=== PATIENT | male | born 1985 | race African-American/Black ===

== ENCOUNTER 2017-01-28 05:44 | Emergency (ER) | payer SELFPAY ==
[~2017-01-28] VITALS: Ht 177.8 cm; Wt 63.0 kg
[2017-01-28 06:00] VITALS: BP 156/90
== END 2017-01-28 06:27 | disposition left against medical advice (07) ==
LOC: ER 05:55
DX: R42 Dizziness and giddiness (principal); R00.0 Tachycardia, unspecified; F14.10 Cocaine abuse, uncomplicated; F41.9 Anxiety disorder, unspecified; I10 Essential (primary) hypertension; F17.210 Nicotine dependence, cigarettes, uncomplicated; Z53.21 Procedure and treatment not carried out due to patient leaving prior to being seen by health care provider